=== PATIENT | male | born 1990 | race Caucasian/White ===

== ENCOUNTER 2019-08-16 13:11 | Emergency (ER) | payer OTHER ==
[~2019-08-16] VITALS: Ht 172.7 cm; Wt 86.2 kg
--- NOTE | 2019-08-16 13:23 | NUR ---
PT IS IN ROOM #2A. DR PUGA EVALUTED THE PT.
[2019-08-16 13:36] LABS: BASOPHILS % (AUTO) 0.6 % (0.0-2.0); EOSINOPHILS # (AUTO) 0.2 K/uL (0.0-0.7); EOSINOPHILS % (AUTO) 3.1 % (0.0-7.0); HEMATOCRIT 46.9 % (36.7-47.1); HEMOGLOBIN 16.3 g/dL (12.5-16.3); LYMPHOCYTES # (AUTO) 2.5 K/uL (20.0-40.0); LYMPHOCYTES % (AUTO) 33.9 % (20.5-51.5); MEAN CORPUSCULAR HEMOGLOBIN 30.5 uug (23.8-33.4); MEAN CORPUSCULAR HGB CONC 35 g/dL (32.5-36.3); MEAN CORPUSCULAR VOLUME 87.8 fL (73.0-96.2); MONOCYTES # (AUTO) 0.4 K/uL (2.0-10.0); MONOCYTES % (AUTO) 5.7 % (0.0-11.0); NEUTROPHILS # (AUTO) 4.2 K/uL (1.8-8.9); NEUTROPHILS % (AUTO) 56.7 % (38.5-71.5); PLATELET COUNT (AUTO) 253 K/uL (152-348); RED BLOOD CELL COUNT(AUTO) 5.34 MIL/uL (4.06-5.63); WHITE BLOOD COUNT (AUTO) 7.3 K/uL (3.6-10.2)
[2019-08-16 13:42] LABS: CREATININE 0.9 mg/dL (0.6-1.3); POTASSIUM 4.1 mmol/L (3.5-5.1)
--- NOTE | 2019-08-16 14:00 | NUR ---
PT WAS D/C'd TO HOME. D/C INSTRUCTIONS GVEN TO THE PT.
[2019-08-16 14:04] VITALS: BP 136/78
== END 2019-08-16 14:04 | disposition other institution (70) ==
LOC: ER 13:11
DX: R07.89 Other chest pain (principal)
CPT/HCPCS: 36415; 70030-TC; 71045; 85025; 93005; A4663

== ENCOUNTER 2020-01-26 07:51 | Emergency (ER) | payer OTHER ==
[~2020-01-26] VITALS: Ht 172.7 cm; Wt 90.7 kg
--- NOTE | 2020-01-26 08:04 | NUR ---
Dr. Quintero at the bedside for MSE.
[2020-01-26] MEDS ORDERED: NAPROXEN 500 MG TABLET ONE (08:11)
[2020-01-26] MEDS ORDERED: NAPROXEN 500 MG TABLET PO ONE (08:15)
--- NOTE | 2020-01-26 08:26 | NUR ---
Patient discharged to home in stable condition. Written and verbal after care instructions given. Patient verbalizes understanding of instructions.
== END 2020-01-26 08:28 | disposition home or self-care (01) ==
LOC: ER 07:51
DX: H60.92 Unspecified otitis externa, left ear (principal)
CPT/HCPCS: A4217; A4663

== ENCOUNTER 2020-05-13 00:29 | Inpatient (IN) | payer OTHER ==
[~2020-05-13] VITALS: Ht 172.7 cm; Wt 90.7 kg
--- NOTE | 2020-05-13 00:50 | NUR ---
at [facility] for MSE
[2020-05-13] MEDS ORDERED: MECLIZINE HCL 25 MG TABLET PO ONE (01:00)
[2020-05-13] MEDS ORDERED: IV NORMAL SALINE 1000 ML BAG IV ONE (01:00)
[2020-05-13] MEDS ORDERED: MECLIZINE HCL 25 MG TABLET ONE (01:15)
--- NOTE | 2020-05-13 01:15 | NUR ---
Radiology to patient for CT at this time
[2020-05-13 01:22] LABS: BASOPHILS # (AUTO) 0.1 K/uL (0.0-8.0); BASOPHILS % (AUTO) 0.7 % (0.0-2.0); EOSINOPHILS # (AUTO) 0.2 K/uL (0.0-0.7); EOSINOPHILS % (AUTO) 2.6 % (0.0-7.0); HEMOGLOBIN 15.4 g/dL (12.5-16.3); LYMPHOCYTES # (AUTO) 2.6 K/uL (20.0-40.0); LYMPHOCYTES % (AUTO) 27.5 % (20.5-51.5); MEAN CORPUSCULAR HEMOGLOBIN 30.1 uug (23.8-33.4); MEAN CORPUSCULAR HGB CONC 35 g/dL (32.5-36.3); MEAN CORPUSCULAR VOLUME 85.9 fL (73.0-96.2); MONOCYTES # (AUTO) 0.5 K/uL (2.0-10.0); MONOCYTES % (AUTO) 5.4 % (0.0-11.0); NEUTROPHILS % (AUTO) 63.8 % (38.5-71.5); PLATELET COUNT (AUTO) 265 K/uL (152-348); RED BLOOD CELL COUNT(AUTO) 5.12 MIL/uL (4.06-5.63); WHITE BLOOD COUNT (AUTO) 9.3 K/uL (3.6-10.2)
--- NOTE | 2020-05-13 01:26 | NUR ---
return from CT at this time, no signs of distress noted
[2020-05-13 01:29] LABS: CREATININE 1.2 mg/dL (0.6-1.3); POTASSIUM 3.9 mmol/L (3.5-5.1)
[2020-05-13 01:35] LABS: BILIRUBIN,DIRECT 0.1 mg/dL (0.0-0.2); BILIRUBIN,TOTAL 0.3 mg/dL (0.2-1.0)
[2020-05-13] MEDS ORDERED: ASPIRIN 325 MG TABLET ONE (03:00)
--- NOTE | 2020-05-13 03:30 | NUR ---
Spoke with Paula from [facility] about patient being transferred to [facility]
--- NOTE | 2020-05-13 04:35 | NUR ---
Patient noted resting in bed, no signs of distress noted, vitals WNL
--- NOTE | 2020-05-13 04:59 | NUR ---
Repeat EKG done at this time, lab noted redrawing blood for labs
--- NOTE | 2020-05-13 05:43 | NUR ---
Called for bed. spoke with PATRICIA August. Tele [phone]
--- NOTE | 2020-05-13 05:58 | NUR ---
Patient noted resting in bed with eyes closed, no signs of distress noted, call light in reach
[2020-05-13] MEDS ORDERED: Z GUARD REMEDY PASTE 57 GM TUBE TOP PRN (06:45)
[2020-05-13] MEDS ORDERED: ACETAMINOPHEN 325 MG TABLET PO PRN (06:45)
[2020-05-13] MEDS ORDERED: HYDROCODONE/APAP 5-325MG TABLET PO PRN (06:45)
[2020-05-13] MEDS ORDERED: ONDANSETRON 4 MG/2 ML VIAL IV PRN (06:45)
[2020-05-13] MEDS ORDERED: MAGNESIUM HYDROXIDE 30 ML LIQUID UDC PO PRN (06:45)
--- NOTE | 2020-05-13 06:52 | NUR ---
Report given to Austin GOMEZ
--- NOTE | 2020-05-13 06:52 | NUR ---
Patient noted resting in bed, no signs of distress noted
[2020-05-13] MEDS: BLOOD SUGAR DIAGNOSTIC 1 EACH STRIP VI SCH ×3 (07:32→16:08)
[2020-05-13 07:43] LABS: THYROID STIMULATING HORMONE 1.691 mIU/mL (0.358-3.740)
--- NOTE | 2020-05-13 07:50 | NUR ---
ADMITTED IN ROOM 310 A 30 YO MALE AWAKE. ALERT AND ORIENTED X3, ANSWERS QUESTIONS APPROPRIATELY, DENIES PAIN OR SOB, DENIES NUMBNESS, SPEECH CLEAR. ROUTINE ADMISSION ASSESSMENT INITIATED. ADMISSION ORDERS FORM DR THOMAS GIVEN IN ER. SR/SB ON MONITOR
--- NOTE | 2020-05-13 07:57 | NUR ---
REPORT WAS GIVEN TO CHOKER SETTER. PT WAS TRANSFERED TO ROOM #310.
[2020-05-13 08:23] VITALS: BP 136/81
[2020-05-13 12:00] VITALS: BP 132/80
[2020-05-13] MEDS ORDERED: BLOOD SUGAR DIAGNOSTIC 1 EACH STRIP VI SCH (12:00)
--- NOTE | 2020-05-13 12:07 | NUR ---
SEEN BY MANJEET DAVILA AND DR PAULA FOR NEURO CONSULT, SEE NOTES
--- NOTE | 2020-05-13 15:00 | NUR ---
DENTAL AIDE CALLED RE: PATIENT NEEDS TRANSFER TO [facility]. MANJEET DAVILA NOTIFIED AND GAVE DISCHARGE ORDER
--- NOTE | 2020-05-13 15:10 | NUR ---
[facility]
[2020-05-13 16:38] VITALS: BP 102/48
--- NOTE | 2020-05-13 17:22 | NUR ---
DISCHARGED TO [facility]IA [facility]
[2020-05-13] MEDS ORDERED: SIMVASTATIN 40 MG TABLET PO SCH (21:00)
[2020-05-14] MEDS ORDERED: ASPIRIN EC 81 MG TABLET.DR PO SCH (09:00)
[2020-05-14] MEDS ORDERED: ASPIRIN 325 MG TABLET PO SCH (09:00)
--- NOTE | 2020-05-14 09:19 | NUR ---
This SW received a social work program coordinator consultation for stroke. The consultation order was entered on Thursday05/13/20. No SW available on weekends. This SW received the consultation order this morning, Thursday05/14/2020. Per patient's medical records, patient was transferred to [facility] on 05/13/20. Unable to complete SS consultation at this time.
== END 2020-05-13 17:25 | disposition short-term general hospital (02) | DRG 45 ==
LOC: ER 00:30 → TELE3 07:14
PROVIDERS: ADMIT Registered Nurse; ATTEND Registered Nurse
DX: I63.81 Other cerebral infarction due to occlusion or stenosis of small artery (principal); G83.24 Monoplegia of upper limb affecting left nondominant side; R40.2362 Coma scale, best motor response, obeys commands, at arrival to emergency department; R40.2142 Coma scale, eyes open, spontaneous, at arrival to emergency department; R40.2252 Coma scale, best verbal response, oriented, at arrival to emergency department; R29.700 NIHSS score 0; F41.9 Anxiety disorder, unspecified; E66.9 Obesity, unspecified; Z68.30 Body mass index [BMI] 30.0-30.9, adult; F17.210 Nicotine dependence, cigarettes, uncomplicated; R42 Dizziness and giddiness; F17.290 Nicotine dependence, other tobacco product, uncomplicated
CPT/HCPCS: 36415; 70030-TC; 70450; 71045; 84443; 85025; 85651; 85730; 93005; 93307; A4663; G0378; J7030; J8597

== ENCOUNTER 2020-05-30 19:41 | Emergency (ER) | payer MEDICAID, OTHER ==
[~2020-05-30] VITALS: Ht 172.7 cm; Wt 90.7 kg
--- NOTE | 2020-05-30 19:54 | NUR ---
Dr. Ruggiero at bedside for MSE
[2020-05-30] MEDS ORDERED: HYDROCODONE/APAP 5-325MG TABLET PO ONE (20:00)
[2020-05-30] MEDS ORDERED: LORAZEPAM 0.5 MG TABLET PO ONE (20:00)
[2020-05-30] MEDS ORDERED: ASPIRIN 81 MG TAB.CHEW PO ONE (20:00)
[2020-05-30] MEDS ORDERED: NITROGLYCERIN 0.4 MG/TAB BOTTLE SL ONE (20:00)
[2020-05-30] MEDS ORDERED: NITROGLYCERIN OINT 1 GM PACKET TP ONE (20:00)
[2020-05-30 20:17] LABS: BASOPHILS # (AUTO) 0.1 K/uL (0.0-8.0); BASOPHILS % (AUTO) 0.7 % (0.0-2.0); EOSINOPHILS # (AUTO) 0.2 K/uL (0.0-0.7); EOSINOPHILS % (AUTO) 2.8 % (0.0-7.0); HEMATOCRIT 44.2 % (36.7-47.1); HEMOGLOBIN 15.4 g/dL (12.5-16.3); LYMPHOCYTES # (AUTO) 2.4 K/uL (20.0-40.0); LYMPHOCYTES % (AUTO) 28.5 % (20.5-51.5); MEAN CORPUSCULAR HEMOGLOBIN 30.2 uug (23.8-33.4); MEAN CORPUSCULAR HGB CONC 35 g/dL (32.5-36.3); MEAN CORPUSCULAR VOLUME 86.6 fL (73.0-96.2); MONOCYTES # (AUTO) 0.4 K/uL (2.0-10.0); MONOCYTES % (AUTO) 4.9 % (0.0-11.0); NEUTROPHILS # (AUTO) 5.4 K/uL (1.8-8.9); NEUTROPHILS % (AUTO) 63.1 % (38.5-71.5); PLATELET COUNT (AUTO) 279 K/uL (152-348); WHITE BLOOD COUNT (AUTO) 8.6 K/uL (3.6-10.2)
[2020-05-30] MEDS ORDERED: LORAZEPAM 1 MG TABLET ONE (20:17)
[2020-05-30] MEDS ORDERED: ASPIRIN 81 MG TAB.CHEW ONE (20:17)
--- NOTE | 2020-05-30 20:18 | NUR ---
xray at bedside
[2020-05-30 20:25] LABS: CREATININE 1.2 mg/dL (0.6-1.3); POTASSIUM 4.1 mmol/L (3.5-5.1)
[2020-05-30 20:37] LABS: BILIRUBIN,DIRECT 0.1 mg/dL (0.0-0.2); BILIRUBIN,TOTAL 0.5 mg/dL (0.2-1.0); TOTAL PROTEIN, SERUM 7.1 g/dL (6.4-8.2)
--- NOTE | 2020-05-30 23:46 | NUR ---
IV removed. Catheter intact and site benign. Pressure and 4x4 gauze applied to site. No bleeding noted.
--- NOTE | 2020-05-30 23:48 | NUR ---
Patient discharged to home in stable condition. Written and verbal after care instructions given. Patient verbalizes understanding of instructions. Stressed follow up or return to ER for worsening s/s. AA/OX4. ABLE TO SPEAK IN COMPLETE [facility] WITH [facility] IN STABLE CONDITION ALL BELONGINGS WITH PT
[2020-05-30 23:50] VITALS: BP 120/68
== END 2020-05-30 23:56 | disposition home or self-care (01) ==
LOC: ER 19:43
DX: R07.9 Chest pain, unspecified (principal); R42 Dizziness and giddiness; R00.2 Palpitations; Z86.73 Personal history of transient ischemic attack (TIA), and cerebral infarction without residual deficits; F17.291 Nicotine dependence, other tobacco product, in remission
CPT/HCPCS: 36415; 70030-TC; 71045; 85025; 93005; A4663